=== PATIENT | female | born 1980 | race Two or more races ===

== ENCOUNTER 2019-03-07 10:30 | Emergency (ER) | payer OTHER, MEDICAID ==
[~2019-03-07] VITALS: Ht 144.8 cm; Wt 78.0 kg
[2019-03-07 10:45] VITALS: BP 143/75
[2019-03-07] MEDS ORDERED: IBUPROFEN 800 MG TAB PO ONE (13:45)
== END 2019-03-07 14:01 | disposition home or self-care (01) ==
LOC: ER 10:30
DX: S16.1XXA Strain of muscle, fascia and tendon at neck level, initial encounter (principal); S50.01XA Contusion of right elbow, initial encounter; V49.9XXA Car occupant (driver) (passenger) injured in unspecified traffic accident, initial encounter; Y93.89 Activity, other specified; Y92.89 Other specified places as the place of occurrence of the external cause; Y99.8 Other external cause status
CPT/HCPCS: 72040

== ENCOUNTER 2021-09-16 12:05 | Emergency (ER) | payer MEDICAID ==
[~2021-09-16] VITALS: Ht 134.6 cm; Wt 74.8 kg
[2021-09-16 12:31] VITALS: BP 126/75
[2021-09-16] MEDS ORDERED: IBUP800T27 PO (13:20)
== END 2021-09-16 13:24 | disposition home or self-care (01) ==
LOC: ER 12:05
DX: M67.834 Other specified disorders of tendon, left wrist (principal)
CPT/HCPCS: 93005

== ENCOUNTER 2023-02-27 08:22 | Emergency (ER) | payer MEDICAID ==
[~2023-02-27] VITALS: Ht 175.3 cm; Wt 73.2 kg
[~2023-02-27 08:22] MED LIST: IBUP-1456 PO
[2023-02-27 08:54] LABS: Urine WBC None Seen /hpf (0 - 5)
[2023-02-27 09:05] LABS: Urine Bacteria FEW /hpf (None Seen); Urine Blood Negative /uL (Negative); Urine Clarity Clear (Clear); Urine Protein, UAD Negative (Negative); Urine Specific Gravity 1.002 (1.001-1.035); Urine Urobilinogen Normal (Negative); Urine pH 6.5 (5.0-8.0)
[2023-02-27 09:11] VITALS: BP 114/73; RESP 18; TEMP 97.8; O2SAT 100
[2023-02-27 09:14] LABS: Urine Color Straw (Yellow)
[2023-02-27] MEDS ORDERED: KETOROLAC TROMETH 60MG/2ML VIAL IM ONE (10:00)
[2023-02-27 10:33] VITALS: PULSE 93
[2023-02-27 11:40] LABS: Basophils # (auto) 0.1 10 ^3/uL (0-0.2); Basophils % (auto) 0.7 % (0.0-2.0); Eosinophils # (auto) 0.2 10 ^3/uL (0-0.8); Eosinophils % (auto) 1.6 % (0.0-7.0); Hematocrit 44.6 % (36.0-46.0); Hemoglobin 14.9 g/dL (12.2-16.2); Lymphocytes # (auto) 2.8 10 ^3/uL (0.4-5.4); Lymphocytes % (auto) 28.9 % (10.0-50.0); Mean Corpuscular Hemoglobin 29.1 pg (28.0-32.0); Mean Corpuscular Hgb Conc. 33.5 g/dL (32.0-36.0); Mean Corpuscular Volume 86.9 fL (80.0-100.0); Monocytes # (auto) 0.4 10 ^3/uL (0-1.3); Neutrophils # (auto) 6.3 10 ^3/uL (1.6-8.6); Neutrophils % (auto) 64.8 % (37.0-80.0); Nucleated Red Blood Cells % 0.1 %; Red Blood Cells 5.13 10^6/uL (4.0-5.20); Red Cell Distribution Width 13.3 % (11.8-14.3); White Blood Cell 9.7 10^3/uL (4.4-10.8)
[2023-02-27 12:12] LABS: Alanine Aminotransferase 29 U/L (7-40); Albumin 4.5 g/dL (3.2-4.8); Alkaline Phosphatase 95 U/L (46-116); Anion Gap 7 (5-15); Aspartate Aminotransferase 18 U/L (13-40); BUN/Creatinine Ratio 14.3 (10.0-20.0); Blood Urea Nitrogen 11 mg/dL (9-23); Calcium 9.6 mg/dL (8.5-10.1); Carbon Dioxide 25 mmol/L (20-30); Chloride 106 mmol/L (98-107); Glucose 119 mg/dL (74-106); Potassium 4.5 mmol/L (3.5-5.1); Sodium 138 mmol/L (136-145)
[2023-02-27 12:13] LABS: Bilirubin, Total 0.5 mg/dL (0.2-1.0); Total Protein 7.7 g/dL (5.7-8.2)
[2023-02-27] MEDS ORDERED: PHEN-1044 PO (12:26)
[2023-02-27] MEDS ORDERED: ACET500T58 PO (12:26)
== END 2023-02-27 12:27 | disposition home or self-care (01) ==
LOC: ER 08:22
DX: R30.0 Dysuria (principal); J06.9 Acute upper respiratory infection, unspecified; R06.02 Shortness of breath; Z88.1 Allergy status to other antibiotic agents; Z88.0 Allergy status to penicillin
CPT/HCPCS: 36415; 71045; 80053; 81001; 83880; 84484; 85025; 93005; 96372; 99285; J1885